=== PATIENT | female | born 1985 | race Two or more races ===

== ENCOUNTER 2023-09-05 11:31 | Emergency (ER) | payer MEDICAID, OTHER ==
[~2023-09-05] VITALS: Ht 162.6 cm; Wt 86.2 kg
[~2023-09-05 11:31] MED LIST: [UNRECOGNIZED DRUG - REMARK]
[2023-09-05 11:40] VITALS: BP 141/104; TEMP 98.8
[2023-09-05] MEDS ORDERED: IBUP-1955 PO (12:12)
[2023-09-05 12:34] VITALS: O2SAT 99
== END 2023-09-05 12:35 | disposition home or self-care (01) ==
LOC: ER 11:43
DX: J06.9 Acute upper respiratory infection, unspecified (principal)